=== PATIENT | male | born 1950 | race Caucasian/White ===

== ENCOUNTER 2021-10-04 05:58 | Day surgery (SDC) | payer MEDICARE, BC ==
[~2021-10-04] VITALS: Ht 177.8 cm; Wt 80.1 kg
[~2021-10-04 05:58] MED LIST: CLARITIN D TAB1 TAB PO; CLARITIN10 MG PO; LEVOXYL0.075 MG PO; LORATADINE10 MG PO; NASONEX SPRAY; PRILOSEC 20MG20 MG PO; PROVENTIL0.09 MG/A1 IH; SIMVASTATIN40 MG PO; TRICOR145 MG PO
[2021-10-04] MEDS ORDERED: MASON NATURAL2000 IU PO (06:38)
[2021-10-04] MEDS ORDERED: [UNRECOGNIZED DRUG - OTHER] PO (06:38)
[2021-10-04 07:25] VITALS: BP 101/69; PULSE 83; TEMP 97.7
--- NOTE | 2021-10-04 07:25 | NUR ---
Pt arrived from procedure drowsy but oriented. Pt was assisted with ambulating from cart to chair by Tiffany ARGUETA and Yanira ARGUETA. Vitals obtained. Bedside report obtained. Pt requested applesauce and water. Warm blankets provided. Call davies is within reach on side table. Visitor present.
[2021-10-04 07:40] VITALS: BP 105/70; PULSE 74
--- NOTE | 2021-10-04 07:40 | NUR ---
Vitals obtained. Pt has finished his applesauce and continues to sip on water, denies nausea. No vomiting. Pt expressed desire to be discharged. Call davies remains within reach.
[2021-10-04 07:55] VITALS: BP 120/76; PULSE 67
--- NOTE | 2021-10-04 07:55 | NUR ---
Vitals obtained. IV discontinued. Catheter tip intact. Pressure bandage applied. No redness or swelling noted. DC instructions and educational material reviewed with the pt, who verbalized understanding and signed the realted paperwork. Pt denied having questions or concerns. Pt denied needing assistance changing into personal clothes. Pt was then dismissed from ENDO via wheelchair by Yanira ARGUETA. Pt has DC packet and personal belongings and was transferred into the care of his visitor, who is present to drive.
[2021-10-04 11:58] VITALS: BP 132/74; PULSE 86; TEMP 97.8
== END 2021-10-04 08:10 | disposition home or self-care (01) ==
LOC: SDCO 05:58
DX: Z12.11 Encounter for screening for malignant neoplasm of colon (principal); K21.9 Gastro-esophageal reflux disease without esophagitis; Z86.010 Personal history of colon polyps
CPT/HCPCS: J2704; J7120

== ENCOUNTER 2022-07-07 15:13 | Outpatient (RCR) | payer MEDICARE, BC ==
[~2022-07-07 15:13] MED LIST changes: +MASON NATURAL2000 IU PO; +[UNRECOGNIZED DRUG - OTHER] PO
== END 2022-07-08 | disposition home or self-care (01) ==
LOC: COL.CR
DX: Z95.1 Presence of aortocoronary bypass graft (principal); Z48.812 Encounter for surgical aftercare following surgery on the circulatory system; I25.10 Atherosclerotic heart disease of native coronary artery without angina pectoris

== ENCOUNTER 2022-07-28 14:30 | Outpatient (RCR) | payer MEDICARE, BC | END 2022-08-05 | disposition home or self-care (01) | LOC: COL.CR | DX: Z48.812 Encounter for surgical aftercare following surgery on the circulatory system (principal); Z95.1 Presence of aortocoronary bypass graft; I25.10 Atherosclerotic heart disease of native coronary artery without angina pectoris ==

== ENCOUNTER 2022-09-01 15:14 | Outpatient (RCR) | payer MEDICARE, BC | END 2022-09-05 | disposition home or self-care (01) | LOC: COL.CR | DX: I25.10 Atherosclerotic heart disease of native coronary artery without angina pectoris (principal) ==

== ENCOUNTER 2022-10-03 15:44 | Outpatient (RCR) | payer MEDICARE, BC | END 2022-10-05 | disposition home or self-care (01) | LOC: COL.CR | DX: I25.10 Atherosclerotic heart disease of native coronary artery without angina pectoris (principal) ==

== ENCOUNTER 2022-11-05 15:50 | Outpatient (RCR) | payer MEDICARE, BC | END 2022-11-05 15:59 | disposition home or self-care (01) | LOC: COL.CR 15:50 | DX: Z48.812 Encounter for surgical aftercare following surgery on the circulatory system (principal); Z95.5 Presence of coronary angioplasty implant and graft; I25.10 Atherosclerotic heart disease of native coronary artery without angina pectoris ==